=== PATIENT | female | born 1965 | race Caucasian/White ===

== ENCOUNTER 2020-01-15 19:21 | Emergency (ER) | payer MEDICAID ==
[~2020-01-15] VITALS: Ht 157.5 cm; Wt 73.5 kg
[2020-01-15 19:30] VITALS: Ht 157.5 cm; Wt 73.5 kg
[2020-01-15 20:35] VITALS: BP 150/93
== END 2020-01-15 20:35 | disposition home or self-care (01) ==
LOC: ED 19:21
DX: S61.012A Laceration without foreign body of left thumb without damage to nail, initial encounter (principal); Z88.7 Allergy status to serum and vaccine; W25.XXXA Contact with sharp glass, initial encounter; Y93.89 Activity, other specified; Y92.89 Other specified places as the place of occurrence of the external cause; Y99.8 Other external cause status
CPT/HCPCS: J2001; Q0092

== ENCOUNTER 2020-01-18 22:31 | Emergency (ER) | payer MEDICAID ==
[~2020-01-18] VITALS: Ht 154.9 cm; Wt 65.8 kg
[2020-01-18 22:41] VITALS: Ht 154.9 cm; Wt 65.8 kg
[2020-01-18 23:05] VITALS: BP 156/92
== END 2020-01-18 23:05 | disposition home or self-care (01) ==
LOC: ED 22:31
DX: S61.011D Laceration without foreign body of right thumb without damage to nail, subsequent encounter (principal); Z88.7 Allergy status to serum and vaccine; X58.XXXD Exposure to other specified factors, subsequent encounter

== ENCOUNTER 2020-01-23 13:04 | Emergency (ER) | payer MEDICAID ==
[~2020-01-23] VITALS: Ht 152.4 cm; Wt 64.4 kg
[2020-01-23 13:12] VITALS: Ht 152.4 cm; Wt 64.4 kg
[2020-01-23 13:49] VITALS: BP 132/81
== END 2020-01-23 13:49 | disposition home or self-care (01) ==
LOC: ED 13:04
DX: S61.011D Laceration without foreign body of right thumb without damage to nail, subsequent encounter (principal); Z88.7 Allergy status to serum and vaccine; X58.XXXD Exposure to other specified factors, subsequent encounter